=== PATIENT | female | born 1990 | race African-American/Black ===

== ENCOUNTER 2019-03-24 08:46 | Emergency (ER) | payer OTHER ==
[2019-03-24 08:59] VITALS: BP 131/78
--- NOTE | 2019-03-24 09:21 | ED Physician Documentation ---
History of Present Illness - Stated complaint Stated Complaint: SORE THROAT - Chief complaint Chief Complaint: Heent - History obtained from History obtained from: Patient - History of Present Illness Timing: Today Pain level max: 8 Pain level now: 7 Improved by: rest Worsened by: swallowing - Additonal information Additional information: sore throat for 3 days. no fever. has not taken anything for it. Review of Systems Constitutional: denies: Fever, Chills, Myalgias GI: denies: Vomiting, Diarrhea Skin: denies: Rash Musculoskeletal: denies: Neck pain, Back pain Neurologic: denies: Headache PD PAST MEDICAL HISTORY - Past Medical History Past Medical History: No - Past Surgical History Past Surgical History: No - Allergies Allergies/Adverse Reactions: Allergies Allergy/AdvReac Type Severity Reaction Status Date / Time No Known Drug Allergies Allergy Verified 03/24/19 08:59 - Social History Does the pt smoke?: No Smoking Status: Never smoker Does the pt have substance abuse?: No - Immunizations Immunizations are current?: Yes PD ED PE NORMAL - Vitals Vital signs reviewed: Yes - General General: Alert and oriented X 3, No acute distress - HEENT HEENT: PERRL, Ears normal, Moist mucous membranes, Pharynx benign, Other (Normal oropharyngeal exam. No erythema. No tonsillar exudates. Uvula midline. No trismus.) - Neck Neck: Supple, no meningeal sign, No adenopathy - Cardiac Cardiac: RRR, Strong equal pulses - Respiratory Respiratory: No respiratory distress, Clear bilaterally - Abdomen Abdomen: Soft, Non tender, Non distended - Derm Derm: Warm and dry - Neuro Neuro: Alert and oriented X 3 Results - Vitals Vitals: Vital Signs - 24 hr 03/24/19 08:53 Temperature 36 C L Heart Rate 81 Respiratory 16 Rate Blood Pressure 131/78 H O2 Saturation 98 Oxygen O2 Source Room air - Labs Labs: Laboratory Tests 03/24/19 09:04 Group A Strep Rapid Negative PD MEDICAL DECISION MAKING - ED course Complexity details: reviewed results, re-evaluated patient, considered differential, d/w patient ED course: 29-year-old female, well-appearing, nontoxic. Afebrile. Appears to have a viral pharyngitis. Rapid strep is negative. Will continue supportive care and follow-up with her doctor as needed. No evidence of peritonsillar abscess or retropharyngeal abscess. Patient counseled regarding signs and symptoms for which I believe and urgent re-evaluation would be necessary. Patient with good understanding of and agreement to plan and is comfortable going home at this time This document was made in part using voice recognition software. While efforts are made to proofread this document, sound alike and grammatical errors may occur. Departure - Departure Disposition: 01 Home, Self Care Clinical Impression: Viral pharyngitis Condition: Good Instructions: ED Pharyngitis Viral Follow-Up: REEMA JEAN DO [Primary Care Provider] - Within 1 week Comments: You can use Motrin or Tylenol as needed for pain/fever. Return if you worsen. Follow-up with your doctor for further care. Your rapid strep test is negative today. A back-up throat culture was sent. If this is positive, you will receive a phone call. Discharge Date/Time: 03/24/19 10:13
== END 2019-03-24 10:13 | disposition home or self-care (01) ==
LOC: ED 08:46
DX: J02.8 Acute pharyngitis due to other specified organisms (principal)
CPT/HCPCS: 87070; 87430; 99282; 99283

== ENCOUNTER 2020-02-22 17:24 | Emergency (ER) | payer OTHER ==
--- NOTE | 2020-02-22 17:57 | ED Physician Documentation ---
History of Present Illness - Stated complaint Stated Complaint: FEMALE - Additonal information Additional information: 30-year-old female presents to the emergency department with a chief complaint of vaginal bleeding with clots. She reports that she started her menstrual cyc le 2 days ago. She typically uses the diva cup to capture her flow. Today she noticed that there were clots within the diva cup and she denies ever having clots before. She denies any fever, no dysuria, denies the possibility of . She is simply concerned because clots are new to her.No pelvic pain. Review of Systems Constitutional: denies: Fever Cardiac: denies: Chest pain / pressure, Palpitations Respiratory: denies: Dyspnea, Cough : reports: Vaginal bleeding, Irregular menses. denies: Dysuria, Frequency Skin: denies: Rash Musculoskeletal: denies: Neck pain, Back pain Neurologic: denies: Generalized weakness, Focal weakness PD PAST MEDICAL HISTORY - Past Surgical History Past Surgical History: No - Present Medications Home Medications: Ambulatory Orders Medication Instructions Recorded Confirmed No Known Home Medications 02/22/20 02/22/20 - Allergies Allergies/Adverse Reactions: Allergies Allergy/AdvReac Type Severity Reaction Status Date / Time No Known Drug Allergies Allergy Verified 02/22/20 17:55 - Social History Does the pt smoke?: No Smoking Status: Never smoker Does the pt have substance abuse?: No - Immunizations Immunizations are current?: Yes PD ED PE NORMAL - General General: Alert and oriented X 3, No acute distress, Well developed/nourished - Cardiac Cardiac: RRR - Respiratory Respiratory: No respiratory distress - Abdomen Abdomen: Normal bowel sounds, Soft, Non tender - Female Female : 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 Speculum exam reveals a small amount of blood within the vault. Cervical loss is closed. No adnexal or CMT.Bleeding is consistent with a young female on her menstrual cycle.) Results - Vitals Vitals: Vital Signs - 24 hr 02/22/20 17:28 Temperature 36 C L Heart Rate 77 Respiratory 16 Rate Blood Pressure 137/89 H O2 Saturation 97 Oxygen O2 Source Room air - Labs Labs: Laboratory Tests 02/22/20 18:10 Urine Color YELLOW Urine Clarity CLEAR Urine pH 5.5 Ur Specific [place] >=1.030 H Urine Protein NEGATIVE Urine Glucose (UA) NEGATIVE Urine Ketones NEGATIVE Urine Occult Blood LARGE H Urine Nitrite NEGATIVE Urine Bilirubin NEGATIVE Urine Urobilinogen 0.2 (NORMAL) Ur Leukocyte Esterase NEGATIVE Urine RBC 0-5 Urine WBC 0-3 Ur Squamous Epith Cells MANY Squamous H Amorphous Sediment Moderate Urine Bacteria None Seen Ur Microscopic Review INDICATED Urine Culture Comments NOT INDICATED Urine HCG, Qual NEGATIVE PD MEDICAL DECISION MAKING - ED course Complexity details: reviewed results, d/w patient ED course: 30-year-old non female here for evaluation as she noted clots within her diva cup. She reports ports that she has never had clots in her cup before though she is used the diva cup for many years. She is not today a limited pelvic exam reveals no concerns for infection. Her cervical office is closed and there is a small amount of blood in the vaginal vault that is consistent with a menstruating female. I discussed that some clots may be normal especially when the blood is captured within a cup.Bleeding Cussed that she is not and to continue to monitor her menstrual cycles. Advised to return for heavy feeling faint or shortness of breath. Departure - Departure Disposition: 01 Home, Self Care Clinical Impression: Vaginal bleeding Condition: Stable Comments: Shell you are not today. Some women will pass clots with their menstrual cycle. The menstrual cycle is the shedding of the endometrium and sometimes the membrane that is shed can appear to have clots. Your pelvic exam was otherwise unremarkable. Continue to monitor your menstrual cycles. Return to the emergency department for suddenly severe pelvic pain, severe vaginal bleeding, or if you feel lightheaded or dizzy.
[2020-02-22 18:33] LABS: BILIRUBIN,URINE NEGATIVE (NEGATIVE); CLARITY,URINE CLEAR (CLEAR); GLUCOSE, URINE (UA) NEGATIVE (NEGATIVE); KETONES,URINE (UA) NEGATIVE (NEGATIVE); LEUKOCYTE ESTERASE, URINE NEGATIVE (NEGATIVE); NITRITE,URINE NEGATIVE (NEGATIVE); OCCULT BLOOD,URINE LARGE (NEGATIVE); PH,URINE 5.5 PH (5.0-7.5); PROTEIN,URINE NEGATIVE (NEGATIVE); UROBILINOGEN,URINE 0.2 (NORMAL) E.U./dL (NORMAL)
[2020-02-22 18:34] LABS: HCG UR QUAL NEGATIVE
[2020-02-22 18:51] LABS: AMORPHOUS SEDIMENT,UR Moderate /LPF; BACTERIA,URINE None Seen /HPF (None Seen); RBC,URINE 0-5 /HPF (0-5); SQUAMOUS EPITHELIAL CELL,UR MANY Squamous (<= Few)
[2020-02-22 19:12] VITALS: BP 121/78
== END 2020-02-22 19:15 | disposition home or self-care (01) ==
LOC: ED 17:24
DX: N93.9 Abnormal uterine and vaginal bleeding, unspecified (principal)
CPT/HCPCS: 81001; 81003; 81025; 87086; 99283; 99284

== ENCOUNTER 2020-09-04 08:29 | Emergency (ER) | payer OTHER ==
--- NOTE | 2020-09-04 09:17 | ED Physician Documentation ---
PD HPI OPHTHO - Stated complaint Stated Complaint: LT EYE BLURRY - Chief complaint Chief Complaint: Heent - History obtained from History obtained from: Patient - History of Present Illness Timing - onset: Yesterday Timing - duration: Days (2) Timing - details: Gradual onset, Still present Location: Left Quality / character: Aching Associated symptoms: Redness, Discharge, Matting. No: Tearing, FB sensation Contributing factors: Wears contacts Similar symptoms before: Diagnosis (keratoconas) Recently seen: Not recently seen - Additional information Additional information: 30-year-old female with a history of keratoconus is developed some redness to her left eye and some change in her vision that is making it so that her vision in the left eye is about the same as the right. Normally her left eye is better than the right. She wears some hard contact lenses and she has taken these out today and is not able to give us her normal visual acuity. She is wondering about the possibility of an infection or pinkeye and she is more concerned that she has had the reduction in visual acuity. Review of Systems Constitutional: denies: Fever Eyes: reports: Decreased vision, Irritation. denies: Photophobia Ears: denies: Ear pain Nose: denies: Rhinorrhea / runny nose, Congestion Throat: denies: Sore throat Cardiac: denies: Chest pain / pressure, Palpitations Respiratory: reports: Cough. 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 : None HEENT: Other Psych: None Musculoskeletal: None Derm: None Other Past Medical History: Keratoconus - Past Surgical History Past Surgical History: No HEENT: Other - Present Medications Home Medications: Ambulatory Orders Medication Instructions Recorded Confirmed No Known Home Medications 02/22/20 09/04/20 - Allergies Allergies/Adverse Reactions: Allergies Allergy/AdvReac Type Severity Reaction Status Date / Time No Known Drug Allergies Allergy Verified 09/04/20 08:45 - Social History Does the pt smoke?: No Smoking Status: Never smoker Does the pt drink ETOH?: Yes Does the pt have substance abuse?: No - Immunizations Immunizations are current?: Yes PD ED PE NORMAL - Vitals Vital signs reviewed: Yes (hypertensive mild ) - General General: Alert and oriented X 3, No acute distress - HEENT HEENT: Atraumatic, PERRL, EOMI, Other (mild scleral injection. No obvious deformity round pupil with thumb pressures equal. No FB and no drainage. ) - Neck Neck: Supple, no meningeal sign, No bony TTP - Respiratory Respiratory: No respiratory distress - Derm Derm: Normal color, Warm and dry, No rash - Extremities Extremities: No deformity, No edema - Neuro Neuro: Alert and oriented X 3, compliance paralegal 2-12 intact, No motor deficit, No sensory deficit, Normal speech Eye Opening: Spontaneous Motor: Obeys Commands Verbal: Oriented GCS Score: 15 - Psych Psych: Normal mood, Normal affect Results - Vitals Vitals: Vital Signs - 24 hr 09/04/20 09/04/20 08:45 09:43 Temperature 36.9 C 36.2 C L Heart Rate 66 70 Respiratory 16 16 Rate Blood Pressure 135/76 H 123/70 O2 Saturation 98 96 Oxygen O2 Source Room air PD MEDICAL DECISION MAKING - ED course Complexity details: considered differential, d/w patient ED course: 30-year-old female with history of keratoconus has a reduction in her visual acuity and this appears saltatory and she is referred to Dr. Richardson for further evaluation. I was able to talk to Dr. Richardson's PA and he initiated a telephone call with the patient to assist in getting her evaluated today. Departure - Departure Disposition: 01 Home, Self Care Clinical Impression: Redness of eye, Visual acuity reduced Condition: Stable Instructions: Keratoconus About Follow-Up: Justus Richardson MD [Provider Admit Priv/Credential] - Comments: Follow-up with Dr. Richardson's office today for examination. You will need to call your primary to get a referral to see him in his office. Discharge Date/Time: 09/04/20 09:44
[2020-09-04 09:44] VITALS: BP 123/70
== END 2020-09-04 09:44 | disposition home or self-care (01) ==
LOC: ED 08:29
DX: H57.89 Other specified disorders of eye and adnexa (principal); H53.8 Other visual disturbances; Z86.69 Personal history of other diseases of the nervous system and sense organs
CPT/HCPCS: 99281; 99284

== ENCOUNTER 2020-11-04 12:11 | Emergency (ER) | payer OTHER ==
[2020-11-04] MEDS ORDERED: IBUPROFEN 800 MG TABLET PO STA (13:03)
--- NOTE | 2020-11-04 13:04 | ED Physician Documentation ---
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 No other injuries. 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 : None HEENT: Other Psych: None Musculoskeletal: None Derm: None - Past Surgical History Past Surgical History: No HEENT: Other - Present Medications Home Medications: Ambulatory Orders Medication Instructions Recorded Confirmed HYDROcod/ACETAM 5/325 [[place] 5/325] 1 - 2 tab PO Q6H PRN #15 tablet 11/04/20 - Allergies Allergies/Adverse Reactions: Allergies Allergy/AdvReac Type Severity Reaction Status Date / Time No Known Drug Allergies Allergy Verified 11/04/20 12:30 - Social History Does the pt smoke?: No Smoking Status: Never smoker Does the pt drink ETOH?: Yes Does the pt have substance abuse?: No - Immunizations Immunizations are current?: Yes PD ED PE NORMAL - Vitals Vital signs reviewed: Yes - General General: Alert and oriented X 3, No acute distress - Extremities Extremities: Other (Tender to both malleoli of the left ankle with lateral swelling and some talar dome tenderness. No foot tenderness.) - Neuro Neuro: Alert and oriented X 3, Normal speech Results - Vitals Vitals: Vital Signs - 24 hr 11/04/20 12:28 Temperature 36.2 C L Heart Rate 107 H Respiratory 20 Rate Blood Pressure 111/72 O2 Saturation 95 Oxygen O2 Source Room air - Rads (name of study) L ankle Radiology: EMP read contemporaneously (Distal fibular frx) Procedures - Splint (location) L Leg Splint applied by: Tech Type of splint: Fiberglass, Short leg, Posterior Other: Patient tolerated well, No complications, Neurovascular intact, Crutches provided Departure - Departure Disposition: 01 Home, Self Care Clinical Impression: Fracture of distal end of fibula Qualifiers: Encounter type: initial encounter Fracture type: closed Fracture morphology: other fracture Laterality: left Qualified Code(s): S82.832A - Other fracture of upper and lower end of left fibula, initial encounter for closed fracture Condition: Good Record reviewed to determine appropriate education?: Yes Instructions: ED Fx Lower Ext, ED Cast Care Fiberglass Prescriptions: HYDROcod/ACETAM 5/325 [[place] 5/325] 1 - 2 tab PO Q6H PRN #15 tablet PRN Reason: Pain Comments: [place], follow-up with by the end of the week. Keep the splint on and dry and do not remove it until they advise it is safe to do so. Do not drink or drive while taking narcotic pain medication. Note that many narcotic pain relievers also contain Tylenol/acetaminophen. Please ensure that your total dose of acetaminophen from all sources does not exceed 3 g (3000 mg) per day. You may get constipated while on this medication. Take a stool softener such as Colace twice a day while you are on it. Also add an [id number] laxative such as senna or MiraLAX on any day that you do not have a bowel movement. If you received a narcotic pain medication or sedative while in the emergency department, do not drive for the next 24 hours. Forms: Activity restrictions
[2020-11-04] MEDS ORDERED: HYDROcod/ACETAM 5/325 MG TABLET PO STA (13:52)
--- NOTE | 2020-11-04 14:07 | XRAY Report ---
PROCEDURE: Ankle 3 View LT INDICATIONS: ankle inj TECHNIQUE: 3 views of the ankle were acquired. COMPARISON: None FINDINGS: Bones: There is a mildly to moderately displaced intra-articular fracture of the distal fibula. No additional fractures can be seen. The talar dome demonstrates an unremarkable appearance. Soft tissues: Soft tissue swelling is seen laterally. IMPRESSION: Distal fibular fracture, with intra-articular involvement. Reviewed by: Tadeo Addison MD on 11/04/2020 1:06 PM PATRICIO Approved by: Tadeo Addison MD on 11/04/2020 1:06 PM PATRICIO Station ID: [id number]
[2020-11-04 14:23] VITALS: BP 130/85
== END 2020-11-04 14:44 | disposition home or self-care (01) ==
LOC: ED 12:11
DX: S82.832A Other fracture of upper and lower end of left fibula, initial encounter for closed fracture (principal); X50.1XXA Overexertion from prolonged static or awkward postures, initial encounter; Y93.01 Activity, walking, marching and hiking
CPT/HCPCS: 29515; 73610; 99283; A9270

== ENCOUNTER 2021-05-12 06:31 | Emergency (ER) | payer OTHER ==
[2021-05-12] MEDS ORDERED: SODIUM CHLORIDE 0.9% 1,000 ML IV STA (07:08)
[2021-05-12 07:32] LABS: BASOPHILS # (AUTO) 0.1 10^3/uL (0.0-0.1); BASOPHILS % (AUTO) 0.4 %; EOSINOPHILS # (AUTO) 0.1 10^3/uL (0.0-0.7); EOSINOPHILS % (AUTO) 0.4 %; HCT - HEMATOCRIT 42.1 % (37.0-47.0); HGB - HEMOGLOBIN 13.3 g/dL (12.0-16.0); LYMPHOCYTES % (AUTO) 5.5 %; MEAN CORPUSCULAR HEMOGLOBIN 26.1 pg (27.0-31.0); MEAN CORPUSCULAR HGB CONC 31.6 g/dL (32.0-36.0); MEAN CORPUSCULAR VOLUME 82.7 fL (81.0-99.0); MEAN PLATELET VOLUME 11.6 fL (7.9-10.8); MONOCYTES # (AUTO) 0.4 10^3/uL (0.0-1.0); MONOCYTES % (AUTO) 2.5 %; NEUTROPHILS # (AUTO) 15.8 10^3/uL (1.5-6.6); NEUTROPHILS % (AUTO) 90.9 %; PLT - PLATELET COUNT 289 10^3/uL (130-450); RED BLOOD COUNT 5.09 10^6/uL (4.20-5.40); RED CELL DISTRIBUTION WIDTH 13.8 % (12.0-15.0); WHITE BLOOD COUNT 17.4 x10^3/uL (4.8-10.8)
[2021-05-12] MEDS ORDERED: ACETAMINOPHEN 500 MG TABLET PO STA (07:38)
[2021-05-12] MEDS ORDERED: IBUPROFEN 400 MG TABLET PO STA (07:38)
[2021-05-12 07:46] LABS: ALBUMIN 4.8 g/dL (3.2-5.5); ALBUMIN/GLOBULIN RATIO 1.5 (1.0-2.2); BILIRUBIN,TOTAL 0.6 mg/dL (0.2-1.0); CALCIUM 9.3 mg/dL (8.5-10.3); CREATININE 0.7 mg/dL (0.4-1.0); POTASSIUM 3.7 mmol/L (3.5-5.0); TOTAL PROTEIN 7.9 g/dL (6.7-8.2)
--- NOTE | 2021-05-12 09:00 | ED Physician Documentation ---
PD HPI DYSPNEA - Stated complaint Stated Complaint: COUGH/SOA - Chief complaint Chief Complaint: Resp - History obtained from History obtained from: Patient - Additional information Additional information: Patient comes emergency department chief complaint of shortness of breath and cough that started overnight. The patient states that she was feeling completely fine yesterday but woke up around 3:00 this morning with persistent dry cough. Patient states that she has had some chills but does not have a thermometer at home so was unaware that she had a fever. She states she feels tired but she is not sure if this is because she woke up early. No nausea or vomiting. No abdominal pain. She states she feels a tightness in her chest but no chest pain. She has a strong family history of asthma, but she has never been diagnosed. No sick contacts. Patient had the full Moderna vaccination series for Covid in November. No other complaints at this time. Review of Systems Ten Systems: 10 systems reviewed and negative Constitutional: reports: Reviewed and negative Eyes: reports: Reviewed and negative Ears: reports: Reviewed and negative Nose: reports: Reviewed and negative Throat: reports: Reviewed and negative Cardiac: reports: Reviewed and negative Respiratory: reports: Dyspnea, Cough GI: reports: Reviewed and negative : reports: Reviewed and negative Skin: reports: Reviewed and negative Musculoskeletal: reports: Reviewed and negative Neurologic: reports: Reviewed and negative Psychiatric: reports: Reviewed and negative Endocrine: reports: Reviewed and negative Immunocompromised: reports: Reviewed and negative PD PAST MEDICAL HISTORY - Past Medical History Past Medical History: No Cardiovascular: None Respiratory: None Neuro: None Endocrine/Autoimmune: None GI: None 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 HEENT: Other Psych: None Musculoskeletal: None Derm: None - Past Surgical History Past Surgical History: No HEENT: Other - Present Medications Home Medications: Ambulatory Orders Medication Instructions Recorded Confirmed HYDROcod/ACETAM 5/325 [[place] 5/325] 1 - 2 tab PO Q6H PRN #15 tablet 11/04/20 Albuterol Sulfate [Proair Hfa 1 - 2 puffs INH Q4H PRN #1 gm 05/12/21 Inhaler] predniSONE [Deltasone] 60 mg PO DAILY 5 Days #15 tablet 05/12/21 - Allergies Allergies/Adverse Reactions: Allergies Allergy/AdvReac Type Severity Reaction Status Date / Time No Known Drug Allergies Allergy Verified 05/12/21 06:35 - Social History Does the pt smoke?: No Smoking Status: Never smoker Does the pt drink ETOH?: Yes Does the pt have substance abuse?: No - Immunizations Immunizations are current?: Yes PD ED PE NORMAL - Vitals Vital signs reviewed: Yes - General General: Alert and oriented X 3, No acute distress, Well developed/nourished - HEENT HEENT: Atraumatic, PERRL, EOMI, Moist mucous membranes - Neck Neck: Supple, no meningeal sign - Cardiac Cardiac: RRR, No murmur - Respiratory Respiratory: No respiratory distress, Clear bilaterally, Other (Persistent fits of dry coughing, but patient speaking full sentences and in no distress in betwe en.) - Abdomen Abdomen: Soft, Non tender, Non distended - Derm Derm: Normal color, Warm and dry, No rash - Extremities Extremities: No deformity, No edema - Neuro Neuro: Alert and oriented X 3, labor and 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 nurse 2-12 intact, Normal speech - Psych Psych: Normal mood, Normal affect Results - Vitals Vitals: Vital Signs - 24 hr 05/12/21 10:16 Heart Rate 104 H Respiratory 17 Rate Blood Pressure 116/74 O2 Saturation 99 Oxygen O2 Source Room air - Labs Labs: Laboratory Tests 05/12/21 05/12/21 05/12/21 07:12 07:12 07:12 WBC 17.4 H RBC 5.09 Hgb 13.3 Hct 42.1 MCV 82.7 MCH 26.1 L MCHC 31.6 L RDW 13.8 Plt Count 289 MPV 11.6 H Neut # (Auto) 15.8 H Lymph # (Auto) 1.0 L Treasure # (Auto) 0.4 Eos # (Auto) 0.1 Baso # (Auto) 0.1 Absolute Nucleated RBC 0.00 Nucleated RBC % 0.0 Sodium 140 Potassium 3.7 Chloride 104 Carbon Dioxide 24 Anion Gap 12.0 BUN 18 Creatinine 0.7 Estimated GFR (MDRD) 120 Glucose 122 H Calcium 9.3 Total Bilirubin 0.6 AST 25 ALT 24 Alkaline Phosphatase 72 Total Protein 7.9 Albumin 4.8 Globulin 3.1 Albumin/Globulin Ratio 1.5 Lipase 55 H Nasal Adenovirus (PCR) NOT DETECTED Nasal B. parapertussis DNA (PCR) NOT DETECTED Nasal Coronavir 229E PCR NOT DETECTED Nasal Coronavir HKU1 PCR NOT DETECTED Nasal Coronavir NL63 PCR NOT DETECTED Nasal Coronavir OC43 PCR NOT DETECTED Nasal Enterovir/Rhinovir PCR NOT DETECTED Nasal Influenza B PCR NOT DETECTED Nasal Influenza A PCR NOT DETECTED Nasal Parainfluen 1 PCR NOT DETECTED Nasal Parainfluen 2 PCR NOT DETECTED Nasal Parainfluen 3 PCR NOT DETECTED Nasal Parainfluen 4 PCR NOT DETECTED Nasal RSV (PCR) NOT DETECTED Nasal B.pertussis DNA PCR NOT DETECTED Nasal C.pneumoniae (PCR) NOT DETECTED Floyd Human Metapneumo PCR NOT DETECTED Nasal M.pneumoniae (PCR) NOT DETECTED Nasal SARS-CoV-2 (PCR) NOT DETECTED - Rads (name of study) chest XR Radiology: Final report received, EMP read indepedently, See rad report (neg) PD MEDICAL DECISION MAKING - ED course Complexity details: reviewed results, re-evaluated patient, considered di fferential, d/w patient ED course: Patient's work-up, including labs and x-ray and viral panel was negative in the emergency department. I discussed with patient that I am not sure what is causing her fever and cough, but suspect an unidentified viral syndrome. We have discussed symptomatic management at home, as well as the usual indications for return. Departure - Departure Disposition: 01 Home, Self Care Condition: Stable Instructions: ED Viral Syndrome Prescriptions: predniSONE [Deltasone] 60 mg PO DAILY 5 Days #15 tablet Albuterol Sulfate [Proair Hfa Inhaler] 1 - 2 puffs INH Q4H PRN #1 gm PRN Reason: Shortness Of Air/Wheezing Comments: Your chest x-ray is negative, as is your viral panel. Most likely, you have one of the many viruses that are going around, causing cough and fever. You may use the inhaler and steroids to help with the cough. May take Tylenol 650 mg every 4 hours and ibuprofen 600 mg every 6 hours, as needed for fever. Please take the next few days off of work until you are feeling better. If you begin to feel much worse with your breathing, you may return to the emergency department. Otherwise, this illness will be expected to pass on its own in the next week or so. Forms: Activity restrictions Discharge Date/Time: 05/12/21 10:16
[2021-05-12 09:14] LABS: B. PARAPERTUSSIS- RESP PCR PAN NOT DETECTED; B. PERTUSSIS- RESP PCR PANEL NOT DETECTED; C. PNEUMONIAE- RESP PCR PANEL NOT DETECTED; CORONAVIRUS 229E-RESP PCR NOT DETECTED; CORONAVIRUS HKU1-RESP PCR NOT DETECTED; CORONAVIRUS NL63-RESP PCR NOT DETECTED; CORONAVIRUS OC43-RESP PCR NOT DETECTED; HUMAN METAPNEUMOVIRUS NOT DETECTED; INFLUENZA A- RESP PCR PANEL NOT DETECTED; INFLUENZA B - RESP PCR PANEL NOT DETECTED; M. PNEUMONIAE- RESP PCR PANEL NOT DETECTED; PARAINFLUENZA VIRUS 1 NOT DETECTED; PARAINFLUENZA VIRUS 2 NOT DETECTED; PARAINFLUENZA VIRUS 3 NOT DETECTED; RHINOVIRUS/ENTEROVIRUS NOT DETECTED; RSV- RESP PCR PANEL NOT DETECTED; SARS-CoV-2 -RESP PCR PANEL NOT DETECTED
--- NOTE | 2021-05-12 09:14 | XRAY Report ---
PROCEDURE: Chest 1 View X-Ray INDICATIONS: chest pain TECHNIQUE: One view of the chest was acquired. COMPARISON: None FINDINGS: Surgical changes and devices: None. Lungs and pleura: No pleural effusions or pneumothorax. Lungs are clear. Mediastinum: Mediastinal contours appear normal. Heart size is normal. Bones and chest wall: No suspicious bony lesions. Overlying soft tissues appear unremarkable. IMPRESSION: No acute cardiopulmonary findings Reviewed by: Mahamed Ge MD on 05/12/2021 8:12 AM PATRICIO Approved by: Mahamed Ge MD on 05/12/2021 8:12 AM AKAMBER Station ID: [id number]
[2021-05-12 09:15] LABS: PARAINFLUENZA VIRUS 4 NOT DETECTED
[2021-05-12 10:17] VITALS: BP 116/74
== END 2021-05-12 10:16 | disposition home or self-care (01) ==
LOC: ED 06:31
DX: B34.9 Viral infection, unspecified (principal); Z20.822 Contact with and (suspected) exposure to COVID-19
CPT/HCPCS: 0202U; 36415; 71045; 80053; 83690; 85025; 99283; 99284; A9270

== ENCOUNTER 2021-08-16 16:49 | Observation (INO) | payer OTHER ==
[2021-08-16 17:31] LABS: BASOPHILS # (AUTO) 0.1 10^3/uL (0.0-0.1); BASOPHILS % (AUTO) 0.6 %; EOSINOPHILS # (AUTO) 0.2 10^3/uL (0.0-0.7); EOSINOPHILS % (AUTO) 1.8 %; HCT - HEMATOCRIT 37.2 % (37.0-47.0); HGB - HEMOGLOBIN 11.7 g/dL (12.0-16.0); LYMPHOCYTES # (AUTO) 1.8 10^3/uL (1.5-3.5); MEAN CORPUSCULAR HEMOGLOBIN 26.1 pg (27.0-31.0); MEAN CORPUSCULAR HGB CONC 31.5 g/dL (32.0-36.0); MEAN CORPUSCULAR VOLUME 82.9 fL (81.0-99.0); MEAN PLATELET VOLUME 11.8 fL (7.9-10.8); MONOCYTES # (AUTO) 0.7 10^3/uL (0.0-1.0); MONOCYTES % (AUTO) 7.2 %; NEUTROPHILS # (AUTO) 7.5 10^3/uL (1.5-6.6); NEUTROPHILS % (AUTO) 73.1 %; PLT - PLATELET COUNT 216 10^3/uL (130-450); RED BLOOD COUNT 4.49 10^6/uL (4.20-5.40); RED CELL DISTRIBUTION WIDTH 13.8 % (12.0-15.0); WHITE BLOOD COUNT 10.3 x10^3/uL (4.8-10.8)
[2021-08-16 17:43] LABS: ALBUMIN 4.1 g/dL (3.2-5.5); ALBUMIN/GLOBULIN RATIO 1.1 (1.0-2.2); BILIRUBIN,TOTAL 0.5 mg/dL (0.2-1.0); CALCIUM 8.9 mg/dL (8.5-10.3); CREATININE 0.6 mg/dL (0.4-1.0); POTASSIUM 3.7 mmol/L (3.5-5.0); TOTAL PROTEIN 7.7 g/dL (6.7-8.2)
[2021-08-16] MEDS ORDERED: IOPAMIDOL-300 50 ML VIAL ONE (17:54)
[2021-08-16] MEDS ORDERED: iohexoL-300 100 ML VIAL ONE (17:54)
[2021-08-16] MEDS ORDERED: iohexoL-300 100 ML VIAL IVP ONE (18:19)
[2021-08-16] MEDS ORDERED: PIPERACILLIN/TAZOBACTAM 3.375 GM in SODIUM CHLORIDE 0.9% MINIBAG 100 ML IV STA (18:37)
--- NOTE | 2021-08-16 18:40 | ED Physician Documentation ---
PD HPI ABD PAIN - Stated complaint Stated Complaint: ABD PX - Chief complaint Chief Complaint: Abd Pain - History obtained from History obtained from: Patient - History of Present Illness Timing - onset: How many days ago (2) Timing - duration: Days (2) Timing - details: Gradual onset Pain level max: 7 Pain level now: 6 Quality: Aching, Pain Radiation: No: Chest, , Lower back, Left flank, Left shoulder, Right flank, Right shoulder, Upper back Associated symptoms: Nausea. No: Fever, Vomiting, Hematemesis, Diarrhea, Constipation, Melena - Additional information Additional information: Is a 31-year-old female who presents to the emergency department with 2 days of right lower quadrant abdominal pain. Gradually worsening over that time. Worse with movement, nothing makes it better. Described as an aching pain. LMP was 3 days ago. The pain is nonradiating. She states when she presses on the left side of her abdomen it hurts on the right side. Has had decreased appetite, no vomiting or diarrhea. No fever. Has never had similar symptoms previously. 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 : None HEENT: Other Psych: None Musculoskeletal: None Derm: None - Past Surgical History Past Surgical History: No HEENT: Other - Present Medications Home Medications: Ambulatory Orders Medication Instructions Recorded Confirmed HYDROcod/ACETAM 5/325 [New Era 5/325] 1 - 2 tab PO Q6H PRN #15 tablet 11/04/20 Albuterol Sulfate [Proair Hfa 1 - 2 puffs INH Q4H PRN #1 gm 05/12/21 Inhaler] predniSONE [Deltasone] 60 mg PO DAILY 5 Days #15 tablet 05/12/21 - Allergies Allergies/Adverse Reactions: Allergies Allergy/AdvReac Type Severity Reaction Status Date / Time penicillin G Allergy Rash Verified 08/16/21 20:06 [From Bicillin C-R] penicillin G procaine Allergy Rash Verified 08/16/21 20:06 [From Bicillin C-R] - Social History Does the pt smoke?: No Smoking Status: Never smoker Does the pt drink ETOH?: Yes Does the pt have substance abuse?: No - Immunizations Immunizations are current?: Yes PD ED PE NORMAL - Vitals Vital signs reviewed: Yes - General General: Alert and oriented X 3, No acute distress, Well developed/nourished - HEENT HEENT: Moist mucous membranes - Neck Neck: Supple, no meningeal sign - Cardiac Cardiac: RRR, Strong equal pulses - Respiratory Respiratory: No respiratory distress, Clear bilaterally - Abdomen Abdomen: Soft, Non distended, Other (Tender palpation right lower quadrant McBurney's point. Positive rebound and guarding. Positive Rovsing's, positive obturator and psoas signs.) - Back Back: No CVA TTP - Derm Derm: Warm and dry - Extremities Extremities: No edema - Neuro Neuro: Alert and oriented X 3 - Psych Psych: Normal mood, Normal affect Results - Vitals Vitals: Vital Signs - 24 hr 08/16/21 08/16/21 17:03 19:26 Temperature 37.1 C Heart Rate 93 87 Respiratory 18 16 Rate Blood Pressure 127/89 H 146/99 H O2 Saturation 100 99 Oxygen O2 Source Room air - Labs Labs: Laboratory Tests 08/16/21 08/16/21 08/16/21 17:25 17:25 17:25 WBC 10.3 RBC 4.49 Hgb 11.7 L Hct 37.2 MCV 82.9 MCH 26.1 L MCHC 31.5 L RDW 13.8 Plt Count 216 MPV 11.8 H Neut # (Auto) 7.5 H Lymph # (Auto) 1.8 [place] # (Auto) 0.7 Eos # (Auto) 0.2 Baso # (Auto) 0.1 Absolute Nucleated RBC 0.00 Nucleated RBC % 0.0 Sodium 137 Potassium 3.7 Chloride 102 Carbon Dioxide 25 Anion Gap 10.0 BUN 9 Creatinine 0.6 Estimated GFR (MDRD) 118 Glucose 100 Calcium 8.9 Total Bilirubin 0.5 AST 88 H ALT 61 H Alkaline Phosphatase 75 Total Protein 7.7 Albumin 4.1 Globulin 3.6 Albumin/Globulin Ratio 1.1 Lipase 59 H HCG, Quant < 0.60 Urine Color Urine Clarity Urine pH Ur Specific [place] Urine Protein Urine Glucose (UA) Urine Ketones Urine Occult Blood Urine Nitrite Urine Bilirubin Urine Urobilinogen Ur Leukocyte Esterase Urine RBC Urine WBC Ur Squamous Epith Cells Urine Bacteria Ur Microscopic Review Urine Culture Comments Nasal Adenovirus (PCR) Nasal B. parapertussis DNA (PCR) Nasal Coronavir 229E PCR Nasal Coronavir HKU1 PCR Nasal Coronavir NL63 PCR Nasal Coronavir OC43 PCR Nasal Enterovir/Rhinovir PCR Nasal Influenza B PCR Nasal Influenza A PCR Nasal Parainfluen 1 PCR Nasal Parainfluen 2 PCR Nasal Parainfluen 3 PCR Nasal Parainfluen 4 PCR Nasal RSV (PCR) Nasal B.pertussis DNA PCR Nasal C.pneumoniae (PCR) Floyd Human Metapneumo PCR Nasal M.pneumoniae (PCR) Nasal SARS-CoV-2 (PCR) 08/16/21 08/16/21 18:55 18:55 WBC RBC Hgb Hct MCV MCH MCHC RDW Plt Count MPV Neut # (Auto) Lymph # (Auto) Ma[place] # (Auto) Eos # (Auto) Baso # (Auto) Absolute Nucleated RBC Nucleated RBC % Sodium Potassium Chloride Carbon Dioxide Anion Gap BUN Creatinine Estimated GFR (MDRD) Glucose Calcium Total Bilirubin AST ALT Alkaline Phosphatase Total Protein Albumin Globulin Albumin/Globulin Ratio Lipase HCG, Quant Urine Color YELLOW Urine Clarity CLEAR Urine pH 5.5 Ur Specific [place] <=1.005 Urine Protein NEGATIVE Urine Glucose (UA) NEGATIVE Urine Ketones NEGATIVE Urine Occult Blood MODERATE H Urine Nitrite NEGATIVE Urine Bilirubin NEGATIVE Urine Urobilinogen 0.2 (NORMAL) Ur Leukocyte Esterase NEGATIVE Urine RBC 11-25 H Urine WBC 4-5 Ur Squamous Epith Cells FEW Squamous Urine Bacteria Rare Ur Microscopic Review INDICATED Urine Culture Comments NOT INDICATED Nasal Adenovirus (PCR) NOT DETECTED Nasal B. parapertussis DNA (PCR) NOT DETECTED Nasal Coronavir 229E PCR NOT DETECTED Nasal Coronavir HKU1 PCR NOT DETECTED Nasal Coronavir NL63 PCR NOT DETECTED Nasal Coronavir OC43 PCR NOT DETECTED Nasal Enterovir/Rhinovir PCR NOT DETECTED Nasal Influenza B PCR NOT DETECTED Nasal Influenza A PCR NOT DETECTED Nasal Parainfluen 1 PCR NOT DETECTED Nasal Parainfluen 2 PCR NOT DETECTED Nasal Parainfluen 3 PCR NOT DETECTED Nasal Parainfluen 4 PCR NOT DETECTED Nasal RSV (PCR) NOT DETECTED Nasal B.pertussis DNA PCR NOT DETECTED Nasal C.pneumoniae (PCR) NOT DETECTED Floyd Human Metapneumo PCR NOT DETECTED Nasal M.pneumoniae (PCR) NOT DETECTED Nasal SARS-CoV-2 (PCR) NOT DETECTED - Rads (name of study) CT abdomen pelvis Radiology: Final report received, EMP read contemporaneously, See rad report (Acute appendicitis) PD MEDICAL DECISION MAKING - ED course Complexity details: reviewed results, re-evaluated patient, considered differential, d/w patient ED course: Patient is a 31-year-old female who [facility]. Found to have acute appendicitis on CT scan. Started on Zosyn. Discussed the case with general surgery who will come evaluate the patient. Dr. William will take the patient to the operating room for Appendectomy This document was made in part using voice recognition software. While efforts are made to proofread this document, sound alike and grammatical errors may occur. Departure - Departure Disposition: ED Transfer to [facility] Clinical Impression: Appendicitis Qualifiers: Appendicitis type: acute appendicitis Acute appendicitis type: with localized peritonitis Appendicitis gangrene presence: unspecified whether gangrene present Appendicitis perforation presence: without perforation Appendicitis abscess presence: without abscess Qualified Code(s): K35.30 - Acute appendicitis with localized peritonitis, without perforation or gangrene Condition: Stable Discharge Date/Time: 08/16/21 20:54
--- NOTE | 2021-08-16 19:02 | CT Report ---
PROCEDURE: Abdomen/Pelvis W INDICATIONS: RLQ abd pain CONTRAST: IV CONTRAST: Isovue 300 ml: 100 PO CONTRAST: *NO PO CONTRAST TECHNIQUE: After the administration of intravenous contrast, 5 mm thick sections acquired from the diaphragms to the symphysis. 5 mm thick coronal and sagittal reformats were acquired. For radiation dose reducti on, the following was used: automated exposure control, adjustment of mA and/or kV according to rafi ent size. COMPARISON: None. FINDINGS: Image quality: Excellent. ABDOMEN: Lung bases: Lung bases are clear. Heart size is normal. Solid organs: Minimal diffuse hepatic steatosis. Prominent left lobe of liver. Borderline splenomegal y. Gallbladder is unremarkable. Biliary system is non dilated. Pancreas enhances normally. No adre nal nodules. Kidneys demonstrate normal size and enhancement, without hydronephrosis. Peritoneum and bowel: The appendix is edematous, fluid-filled, and inflamed. There is inflammatory ch elinor and minimal inflammatory fluid adjacent to the appendix. Findings are consistent with acute appe ndicitis. Cannot exclude rupture. However, no free air or abscess cavity is noted. There is mild deep pelvic ascites. Nodes and vessels: No retroperitoneal or mesenteric adenopathy by size criteria. Aorta and inferior vena cava are normal in size. Miscellaneous: No ventral hernias. PELVIS: Genitourinary: Bladder wall thickness is normal. There is mild deep pelvic ascites. The right adnex a is cystic. Miscellaneous: No inguinal hernias or adenopathy. Bones: No suspicious bony lesions. No vertebral body compression fractures. IMPRESSION: 1. Acute appendicitis. Cannot exclude recent rupture. 2. Very mild hepatic steatosis. Prominent left lobe of liver. 3. Borderline splenomegaly. Reviewed by: Cem Joseph MD on 08/16/2021 7:00 PM PST Approved by: Cem Joseph MD on 08/16/2021 7:00 PM PST Station ID: [id number]
[2021-08-16 19:06] LABS: BILIRUBIN,URINE NEGATIVE (NEGATIVE); GLUCOSE, URINE (UA) NEGATIVE (NEGATIVE); KETONES,URINE (UA) NEGATIVE (NEGATIVE); LEUKOCYTE ESTERASE, URINE NEGATIVE (NEGATIVE); NITRITE,URINE NEGATIVE (NEGATIVE); OCCULT BLOOD,URINE MODERATE (NEGATIVE); PH,URINE 5.5 PH (5.0-7.5); PROTEIN,URINE NEGATIVE (NEGATIVE); UROBILINOGEN,URINE 0.2 (NORMAL) E.U./dL (NORMAL)
[2021-08-16 19:28] LABS: CLARITY,URINE CLEAR (CLEAR)
[2021-08-16 19:29] LABS: BACTERIA,URINE Rare /HPF (None Seen); SQUAMOUS EPITHELIAL CELL,UR FEW Squamous (<= Few)
[2021-08-16 19:57] LABS: CORONAVIRUS 229E-RESP PCR NOT DETECTED; CORONAVIRUS HKU1-RESP PCR NOT DETECTED; CORONAVIRUS NL63-RESP PCR NOT DETECTED; CORONAVIRUS OC43-RESP PCR NOT DETECTED; HUMAN METAPNEUMOVIRUS NOT DETECTED; INFLUENZA A- RESP PCR PANEL NOT DETECTED; INFLUENZA B - RESP PCR PANEL NOT DETECTED; PARAINFLUENZA VIRUS 1 NOT DETECTED; PARAINFLUENZA VIRUS 2 NOT DETECTED; PARAINFLUENZA VIRUS 3 NOT DETECTED; PARAINFLUENZA VIRUS 4 NOT DETECTED; RHINOVIRUS/ENTEROVIRUS NOT DETECTED; SARS-CoV-2 -RESP PCR PANEL NOT DETECTED
[2021-08-16 19:58] LABS: B. PARAPERTUSSIS- RESP PCR PAN NOT DETECTED; B. PERTUSSIS- RESP PCR PANEL NOT DETECTED; C. PNEUMONIAE- RESP PCR PANEL NOT DETECTED; M. PNEUMONIAE- RESP PCR PANEL NOT DETECTED; RSV- RESP PCR PANEL NOT DETECTED
--- NOTE | 2021-08-16 20:03 | HISTORY & PHYSICAL EXAMINATION ---
Chief Complaint - Chief Complaint Chief Complaint: Right sided abdominal pain History of Present Illness - History of Present Illness HPI Comment/Other: 31 year old woman with 1 day of right sided abdominal pain and associated anorexia. Began as diffuse and crampy, thought to be due to her period starting, but then progressed and localized to the right lower abdomen. Last ate this morning. Nausea, anorexia, no emesis or other GI complaints. No other medical history. 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 : reports: None HEENT: reports: Chronic vision loss, Other Psych: reports: None Musculoskeletal: reports: None Derm: reports: None MRSA Hx?: No - Past Surgical History HEENT: reports: Other - Family & Social History Living arrangement: At home Social History Notes: Is in [place] but soon leaving due to vision impairment - Substance History Use: Uses substance without health or social issues: NONE, Other (Occasional ETOH) Meds/Allgy - Home Medications Home Medications: Ambulatory Orders Medication Instructions Recorded Confirmed HYDROcod/ACETAM 5/325 [Marydel 5/325] 1 - 2 tab PO Q6H PRN #15 tablet 11/04/20 Albuterol Sulfate [Proair Hfa 1 - 2 puffs INH Q4H PRN #1 gm 05/12/21 Inhaler] predniSONE [Deltasone] 60 mg PO DAILY 5 Days #15 tablet 05/12/21 - Allergies Allergies/Adverse Reactions: Allergies Allergy/AdvReac Type Severity Reaction Status Date / Time penicillin G Allergy Rash Verified 08/16/21 20:06 [From Bicillin C-R] penicillin G procaine Allergy Rash Verified 08/16/21 20:06 [From Bicillin C-R] Review of Systems - Constitutional Constitutional: reports: Poor appetite - Eyes Eyes: reports: Vision loss - Ears, Nose & Throat Ears, Nose & Throat: denies: Hearing loss - Cardiovascular Cariovascular: denies: Irregular heart rate, Chest pain - Respiratory Respiratory: denies: Cough, SOB at rest, SOB with exertion - Gastrointestinal Gastrointestinal: reports: Abdominal pain, Poor appetite - Genitourinary Genitourinary: denies: Dysuria - Musculoskeletal Musculoskeletal: denies: Muscle pain - Integumentary Integumentary: denies: Rash - Neurological Neurological: denies: General weakness - All Other Systems All Other Systems: reports: Reviewed and negative Exam - Vital Signs Reviewed Vital Signs: Yes Vital Signs: Vital Signs x48h Temp Pulse Resp BP Pulse Ox 08/16/21 19:26 87 16 146/99 H 99 08/16/21 17:03 37.1 C 93 18 127/89 H 100 - Physical Exam General Appearance: positive: No acute distress Eyes Bilateral: positive: Normal inspection Respiratory: positive: No respiratory distress Cardiovascular: positive: Regular rate & rhythm Abdomen: positive: No distention, Tenderness, Other (Tenderness in right lower quadrant) Skin: positive: Color nml, Warm, Dry Extremities: positive: Full ROM Neurologic/Psychiatric: positive: Oriented x3 Conclusion/Plan - Problem List (1) Appendicitis Conclusion/Plan: Plan for laparoscopic appendectomy Patient received zosyn Consented for surgery after discussion of risks and benefits including bleeding, infection, pain, scarring, and damage to surrounding structures. To OR Qualifiers: Appendicitis type: acute appendicitis Acute appendicitis type: with localized peritonitis Appendicitis gangrene presence: unspecified whether gangrene present Appendicitis perforation presence: without perforation Appendicitis abscess presence: without abscess Qualified Code(s): K35.30 - Acute appendicitis with localized peritonitis, without perforation or gangrene - Lab Results Fish Bones: 08/16/21 17:25 08/16/21 17:25 - Diagnostic Imaging Results Diagnostic Imaging Results: positive: Final report reviewed Diagnostic Imaging Results Comments: Acute appendicitis with some pelvic free fluid
[2021-08-16] MEDS ORDERED: DEXAMETHASONE 4 MG/ML VIAL ONE (20:44)
[2021-08-16] MEDS ORDERED: LIDOCAINE-MPF 2% 5 ML VIAL ONE (20:44)
[2021-08-16] MEDS ORDERED: PROPOFOL 200 MG/20 ML VIAL IVP ONE (20:44)
[2021-08-16] MEDS ORDERED: ONDANSETRON 4 MG/2 ML VIAL ONE ×2 (20:44→23:53)
[2021-08-16] MEDS ORDERED: ROCURONIUM 50 MG/5 ML VIAL ONE (20:44)
--- NOTE | 2021-08-16 20:46 | ANESTHESIA ---
Pre-Anesthesia VS, & Labs - Diagnosis appendicitis - Procedure laparoscopic appendectomy Vital Signs: Temp Pulse Resp BP Pulse Ox 37.1 C 87 16 146/99 H 99 08/16/21 17:03 08/16/21 19:26 08/16/21 19:26 08/16/21 19:26 08/16/21 19:26 Height: 5 ft 4.5 in Weight (kg): 88.5 kg Body Mass Index: 32.9 BMI Classification: Obese - NPO >8 hours - Is Patient ?: No - Lab Results Current Lab Results: Laboratory Tests 08/16/21 17:25: HCG, Quant < 0.60 08/16/21 17:25: Sodium 137, Potassium 3.7, Chloride 102, Carbon Dioxide 25, Anion Gap 10.0, BUN 9, Creatinine 0.6, Estimated GFR (MDRD) 118, Glucose 100, Calcium 8.9, Total Bilirubin 0.5, AST 88 H, ALT 61 H, Alkaline Phosphatase 75, Total Protein 7.7, Albumin 4.1, Globulin 3.6, Albumin/Globulin Ratio 1.1, Lipase 59 H 08/16/21 17:25: WBC 10.3, RBC 4.49, Hgb 11.7 L, Hct 37.2, MCV 82.9, MCH 26.1 L, MCHC 31.5 L, RDW 13.8, Plt Count 216, MPV 11.8 H, Neut # (Auto) 7.5 H, Lymph # (Auto) 1.8, [place] # (Auto) 0.7, Eos # (Auto) 0.2, Baso # (Auto) 0.1, Absolute Nucleated RBC 0.00, Nucleated RBC % 0.0 Fish Bones: 08/16/21 17:25 08/16/21 17:25 Home Medications and Allergies Active Medications Lactated Ringer's (Lr) 1,000 mls @ 0 mls/hr IV .Q0M [facility], 1928–1983 Allergies/Adverse Reactions: Allergies Allergy/AdvReac Type Severity Reaction Status Date / Time penicillin G Allergy Rash Verified 08/16/21 20:06 [From Bicillin C-R] penicillin G procaine Allergy Rash Verified 08/16/21 20:06 [From Bicillin C-R] Anes History & Medical History - Anesthetic History Anesthesia Complications: reports: No previous complications - Medical History Cardiovascular: reports: None Pulmonary: reports: None Gastrointestinal: reports: None Urinary: reports: None Neuro: reports: None Musculoskeletal: reports: None Endocrine/Autoimmune: reports: None Blood Disorders: reports: None Skin: reports: None Smoking Status: Never smoker History of Cancer?: No - Surgical History Eyes Ears Nose Throat (EENT): reports: Other Exam General: Alert, Oriented x3 Dental: WNL Neck Mobility: Normal Mallampati classification: I Respiratory: Lungs clear Cardiovascular: Regular rate Plan Anesthesia Type: General Consent for Procedure(s) Verified and Reviewed: Yes Code Status: Attempt Resuscitation ASA classification: 2-Mild systemic disease Is this case an emergency?: Yes
[2021-08-16] MEDS ORDERED: fentaNYL 100 MCG/2 ML VIAL ONE ×2 (20:47→21:40)
[2021-08-16] MEDS ORDERED: MIDAZOLAM 2 MG/2 ML VIAL ONE (20:47)
[2021-08-16] MEDS ORDERED: LACTATED RINGERS 1,000 ML IV SCH ×2 (21:00→22:00)
[2021-08-16] MEDS ORDERED: BUPIVACAINE 0.5% PF 10 ML VIAL ONE (21:10)
[2021-08-16] MEDS ORDERED: ONDANSETRON 4 MG/2 ML VIAL IVP PRN (21:14)
[2021-08-16] MEDS ORDERED: NALOXONE 0.4 MG/ML VIAL IVP PRN (21:14)
[2021-08-16] MEDS ORDERED: ePHEDrine 50 MG/ML VIAL IVP PRN (21:14)
[2021-08-16] MEDS ORDERED: ATROPINE ABBOJECT 1 MG/10 ML SYRINGE IVP PRN (21:14)
[2021-08-16] MEDS ORDERED: fentaNYL 100 MCG/2 ML VIAL IVP PRN (21:14)
[2021-08-16] MEDS ORDERED: MORPHINE 2 MG/ML CARPUJECT IVP PRN (21:14)
[2021-08-16] MEDS ORDERED: METOCLOPRAMIDE 10 MG/2 ML VIAL IVP PRN (21:14)
[2021-08-16] MEDS ORDERED: SEVOFLURANE 250 ML LIQUID INH ONE (21:32)
[2021-08-16] MEDS ORDERED: BUPIVACAINE 0.5% PF 10 ML VIAL SUBQ ONE ×2 (21:33)
[2021-08-16] MEDS ORDERED: ACETAMINOPHEN 1,000 MG/100 ML 100 ML IV ONE (22:30)
[2021-08-16] MEDS ORDERED: KETOROLAC 30 MG/ML VIAL ONE (23:17)
[2021-08-16] MEDS ORDERED: SUGAMMADEX 200 MG/2 ML VIAL IVP ONE (23:17)
[2021-08-16] MEDS ORDERED: IBUPROFEN 600 MG TABLET PO PRN (23:28)
[2021-08-16] MEDS ORDERED: SODIUM CHLORIDE FLUSH 0.9% 10 ML SYRINGE IVP PRN (23:28)
[2021-08-16] MEDS ORDERED: LACTATED RINGERS 1,000 ML IV ONE (23:33)
[2021-08-16] MEDS ORDERED: ACETAMINOPHEN 325 MG TABLET PO SCH (23:45)
[2021-08-16] MEDS: HYDROmorphone 0.5 MG/0.5 ML SYRINGE IVP PRN ×2 (23:46→23:55)
[2021-08-16] MEDS ORDERED: HYDROmorphone 1 MG/ML CARPUJECT ONE (23:52)
--- NOTE | 2021-08-16 23:57 | ANESTHESIA POST OP EVALUATION ---
Anesthesia Post Eval - Post Anesthesia Eval Vitals: Last Vital Signs Temp 36.9 C 08/16/21 23:55 Pulse 88 08/16/21 23:55 Resp 15 08/16/21 23:55 BP 139/94 H 08/16/21 23:55 Pulse Ox 99 08/16/21 23:55 CV Function Including HR & BP: Stable Pain Control: Satisfactory Nausea & Vomiting: Negative Mental Status: Baseline Respiratory Status: Airway Patent Hydration Status: Satisfactory Anesthesia Complications: None
[2021-08-17] MEDS: HYDROmorphone 0.5 MG/0.5 ML SYRINGE IVP PRN (00:05)
[2021-08-17] MEDS ORDERED: HYDROmorphone 0.5 MG/0.5 ML SYRINGE ONE (00:14)
[2021-08-17] MEDS ORDERED: ACETAMINOPHEN 325 MG TABLET PO SCH (01:00)
[2021-08-17] MEDS ORDERED: ACETAMINOPHEN 500 MG TABLET PO SCH ×2 (01:00→08:00)
[2021-08-17] MEDS: traMADol 50 MG TABLET PO PRN ×2 (01:11→06:00)
[2021-08-17] MEDS: SODIUM CHLORIDE FLUSH 0.9% 10 ML SYRINGE IVP SCH ×2 (03:05→12:02)
[2021-08-17] MEDS ORDERED: HEPARIN 5,000 UNIT/ML VIAL SUBQ SCH (06:00)
[2021-08-17 07:11] VITALS: BP 108/59
--- NOTE | 2021-08-17 07:47 | OPERATIVE REPORT ---
Operative Report - General Procedure Date: 08/16/21 Planned Procedure: Laparoscopic appendectomy Pre-Op Diagnosis: Acute appendicitis Procedure Performed: Laparoscopic appendectomy Post Op Diagnosis: Acute appendicitis - Procedure Note Primary Surgeon: Alannah William Secondary Surgeon: Tomeka Conteh Anesthesia Provider: Meena Mckeon Anesthesia Technique: General ET tube IV Fluids (mL): 1,000 Estimated Blood Loss (mL): 25 Urine Output (mL): 150 Indications: 31year old woman with 2 days of abdominal pain localizing the RLQ, found to have leukocytosis and CTAP demonstrating acute appendicitis. Findings: Inflamed appendix Complications: None apparent - Other Other Information/Narrative: After receiving preoperative antibiotics, the patient was taken to the operating room where SCDs were placed. After starting general anesthesia, a blanco catheter was placed. THe abdomen was prepped and draped in the usual fashion. Local anesthesia (0.5% bupivacaine) was administered at the infraumbilical skin. A transverse incision was made and carried down to the fascia, and the peritoneal cavity was entered with Kathy technique. A 12mm balloon trocar was placed and pneumoperitoneum achieved. A 5-30 laparoscope was introduced, and after some difficulty getting the laparoscopic light to turn on requiring switching to new equipment, the peritoneal contents were inspected and an inflamed appendix was noted in the right lower quadrant. Two more 5mm ports were placed under direct vision in the suprapubic and left lower quadrant and the patient was placed with trendelenburg and right side up. The appendix was grasped and dissected down to the base, requiring some mobilization of the cecum. After creating a window at the base of the appendix, the appendix was taken using a 45mm Endo-LUANN stapler intestinal load, and the mesoappendix taken with a vascular load. Some simple fluid in the abdomen was suctioned, and the staple lines inspected demonstrating no bleeding or breakdown. The appendix specimen was removed with an endocatch bag, pneumoperitoneum evacuated, and trocars removed. The infraumbilical fascia was closed with 0-vicryl suture and skin closed with 4-0 monocryl and surgical glue. All instrument counts were reported correct. The patient was awakened and taken to the recovery room in good condition.
--- NOTE | 2021-08-17 07:59 | PROVIDER PROGRESS NOTE ---
Subjective - Prog Note Date Prog Note Date: 08/17/21 - Subjective Pt reports feeling: Improved (Pain controlled, tolerating fluids, voiding) Objective - Vital Signs/Intake & Output Reviewed Vital Signs: Yes Vital Signs: Vital Signs x48h Temp Pulse Pulse Resp BP BP Pulse Ox 08/17/21 07:10 36.6 C 72 18 108/59 L 95 08/17/21 06:00 36.6 C 84 16 105/63 97 08/17/21 04:45 36.7 C 72 16 112/66 97 08/17/21 04:05 36.5 C 77 16 107/60 96 08/17/21 03:00 36.6 C 84 84 16 113/64 113/64 96 08/17/21 01:13 36.6 C 78 16 123/80 98 08/17/21 00:30 36.4 C L 78 18 122/80 100 08/17/21 00:21 36.5 C 78 15 132/90 H 99 08/17/21 00:15 77 17 133/87 H 92 08/17/21 00:10 81 19 127/89 H 94 08/17/21 00:05 88 17 127/90 H 97 08/17/21 00:00 82 24 139/91 H 94 Intake & Output: Intake & Output 08/14/21 08/15/21 08/16/21 08/17/21 23:59 23:59 23:59 23:59 Intake Total 100 200 Balance 100 200 - Objective General Appearance: positive: No acute distress Respiratory: positive: No respiratory distress Cardiovascular: positive: Regular rate & rhythm Abdomen: positive: Other (Soft, non distended, appropriately tender at surgical sites, incisions c/d/i) Neurologic/Psychiatric: positive: Oriented x3 - Lab Results Fish Bones: 08/16/21 17:25 08/16/21 17:25 Other Labs: Lab Results x24hrs 08/16/21 08/16/21 08/16/21 Range/Units 18:55 18:55 17:25 WBC (4.8-10.8) x10^3/uL RBC (4.20-5.40) 10^6/uL Hgb (12.0-16.0) g/dL Hct (37.0-47.0) % MCV (81.0-99.0) fL MCH (27.0-31.0) pg MCHC (32.0-36.0) g/dL RDW (12.0-15.0) % Plt Count (130-450) 10^3/uL MPV (7.9-10.8) fL Neut # (Auto) (1.5-6.6) 10^3/uL Lymph # (Auto) (1.5-3.5) 10^3/uL Spencer # (Auto) (0.0-1.0) 10^3/uL Eos # (Auto) (0.0-0.7) 10^3/uL Baso # (Auto) (0.0-0.1) 10^3/uL Absolute Nucleated RBC x10^3/uL Nucleated RBC % /100WBC Sodium (135-145) mmol/L Potassium (3.5-5.0) mmol/L Chloride (101-111) mmol/L Carbon Dioxide (21-32) mmol/L Anion Gap (6-13) BUN (6-20) mg/dL Creatinine (0.4-1.0) mg/dL Estimated GFR (MDRD) (>89) Glucose (70-100) mg/dL Calcium (8.5-10.3) mg/dL Total Bilirubin (0.2-1.0) mg/dL AST (10-42) IU/L ALT (10-60) IU/L Alkaline Phosphatase (42-121) IU/L Total Protein (6.7-8.2) g/dL Albumin (3.2-5.5) g/dL Globulin (2.1-4.2) g/dL Albumin/Globulin Ratio (1.0-2.2) Lipase (22-51) U/L HCG, Quant < 0.60 mIU/mL Urine Color YELLOW Urine Clarity CLEAR (CLEAR) Urine pH 5.5 (5.0-7.5) PH Ur Specific [place] <=1.005 (1.002-1.030) Urine Protein NEGATIVE (NEGATIVE) mg/dL Urine Glucose (UA) NEGATIVE (NEGATIVE) mg/dL Urine Ketones NEGATIVE (NEGATIVE) mg/dL Urine Occult Blood MODERATE H (NEGATIVE) Urine Nitrite NEGATIVE (NEGATIVE) Urine Bilirubin NEGATIVE (NEGATIVE) Urine Urobilinogen 0.2 (NORMAL) (NORMAL) E.U./dL Ur Leukocyte Esterase NEGATIVE (NEGATIVE) Urine RBC 11-25 H (0-5) /HPF Urine WBC 4-5 (0-5) /HPF Ur Squamous Epith Cells FEW Squamous (<= Few) Urine Bacteria Rare (None Seen) /HPF Ur Microscopic Review INDICATED Urine Culture Comments NOT INDICATED Nasal Adenovirus (PCR) NOT DETECTED Nasal B. parapertussis DNA (PCR) NOT DETECTED Nasal Coronavir 229E PCR NOT DETECTED Nasal Coronavir HKU1 PCR NOT DETECTED Nasal Coronavir NL63 PCR NOT DETECTED Nasal Coronavir OC43 PCR NOT DETECTED Nasal Enterovir/Rhinovir PCR NOT DETECTED Nasal Influenza B PCR NOT DETECTED Nasal Influenza A PCR NOT DETECTED Nasal Parainfluen 1 PCR NOT DETECTED Nasal Parainfluen 2 PCR NOT DETECTED Nasal Parainfluen 3 PCR NOT DETECTED Nasal Parainfluen 4 PCR NOT DETECTED Nasal RSV (PCR) NOT DETECTED Nasal B.pertussis DNA PCR NOT DETECTED Nasal C.pneumoniae (PCR) NOT DETECTED Floyd Human Metapneumo PCR NOT DETECTED Nasal M.pneumoniae (PCR) NOT DETECTED Nasal SARS-CoV-2 (PCR) NOT DETECTED 08/16/21 08/16/21 Range/Units 17:25 17:25 WBC 10.3 (4.8-10.8) x10^3/uL RBC 4.49 (4.20-5.40) 10^6/uL Hgb 11.7 L (12.0-16.0) g/dL Hct 37.2 (37.0-47.0) % MCV 82.9 (81.0-99.0) fL MCH 26.1 L (27.0-31.0) pg MCHC 31.5 L (32.0-36.0) g/dL RDW 13.8 (12.0-15.0) % Plt Count 216 (130-450) 10^3/uL MPV 11.8 H (7.9-10.8) fL Neut # (Auto) 7.5 H (1.5-6.6) 10^3/uL Lymph # (Auto) 1.8 (1.5-3.5) 10^3/uL Spencer # (Auto) 0.7 (0.0-1.0) 10^3/uL Eos # (Auto) 0.2 (0.0-0.7) 10^3/uL Baso # (Auto) 0.1 (0.0-0.1) 10^3/uL Absolute Nucleated RBC 0.00 x10^3/uL Nucleated RBC % 0.0 /100WBC Sodium 137 (135-145) mmol/L Potassium 3.7 (3.5-5.0) mmol/L Chloride 102 (101-111) mmol/L Carbon Dioxide 25 (21-32) mmol/L Anion Gap 10.0 (6-13) BUN 9 (6-20) mg/dL Creatinine 0.6 (0.4-1.0) mg/dL Estimated GFR (MDRD) 118 (>89) Glucose 100 (70-100) mg/dL Calcium 8.9 (8.5-10.3) mg/dL Total Bilirubin 0.5 (0.2-1.0) mg/dL AST 88 H (10-42) IU/L ALT 61 H (10-60) IU/L Alkaline Phosphatase 75 (42-121) IU/L Total Protein 7.7 (6.7-8.2) g/dL Albumin 4.1 (3.2-5.5) g/dL Globulin 3.6 (2.1-4.2) g/dL Albumin/Globulin Ratio 1.1 (1.0-2.2) Lipase 59 H (22-51) U/L HCG, Quant mIU/mL Urine Color Urine Clarity (CLEAR) Urine pH (5.0-7.5) PH Ur Specific [place] (1.002-1.030) Urine Protein (NEGATIVE) mg/dL Urine Glucose (UA) (NEGATIVE) mg/dL Urine Ketones (NEGATIVE) mg/dL Urine Occult Blood (NEGATIVE) Urine Nitrite (NEGATIVE) Urine Bilirubin (NEGATIVE) Urine Urobilinogen (NORMAL) E.U./dL Ur Leukocyte Esterase (NEGATIVE) Urine RBC (0-5) /HPF Urine WBC (0-5) /HPF Ur Squamous Epith Cells (<= Few) Urine Bacteria (None Seen) /HPF Ur Microscopic Review Urine Culture Comments Nasal Adenovirus (PCR) Nasal B. parapertussis DNA (PCR) Nasal Coronavir 229E PCR Nasal Coronavir HKU1 PCR Nasal Coronavir NL63 PCR Nasal Coronavir OC43 PCR Nasal Enterovir/Rhinovir PCR Nasal Influenza B PCR Nasal Influenza A PCR Nasal Parainfluen 1 PCR Nasal Parainfluen 2 PCR Nasal Parainfluen 3 PCR Nasal Parainfluen 4 PCR Nasal RSV (PCR) Nasal B.pertussis DNA PCR Nasal C.pneumoniae (PCR) Floyd Human Metapneumo PCR Nasal M.pneumoniae (PCR) Nasal SARS-CoV-2 (PCR) Assessment/Plan - Problem List (1) Appendicitis Impression: Recovering appropriately status post laparoscopic appendectomy Advance diet as tolerated, hep lock IV Pain control with tylenol, ibuprofen, tramadol Discharge home today Qualifiers: Appendicitis type: acute appendicitis Acute appendicitis type: with localized peritonitis Appendicitis gangrene presence: unspecified whether gangrene present Appendicitis perforation presence: without perforation Appendicitis abscess presence: without abscess Qualified Code(s): K35.30 - Acute appendicitis with localized peritonitis, without perforation or gangrene
--- NOTE | 2021-08-17 10:13 | Discharge Plan ---
Discharge Plan Condition: Stable No Smoking: If you smoke, Please STOP! Call for help.
--- NOTE | 2021-08-17 10:16 | Discharge Plan ---
Discharge Plan Problem Reviewed?: Yes Disposition: Home, Self Care Condition: Good Prescriptions: traMADol [Ultram] 50 mg PO Q4HR PRN #10 tablet PRN Reason: Pain Diet: Regular Activity Restrictions: Additional Comments (No heavy lifting >10 lbs for 6 weeks) Shower Restrictions: No Driving Restrictions: No (Can drive as long as not taking narcotics including tramadol) Additional Instructions or Follow Up instructions: Call the general surgery clinic on Thursday to set up a post-op appointment for 1- 2 weeks (with Dr. Conteh or Dr. Woo) No Smoking: If you smoke, Please STOP! Call for help. Follow-up with: Barrington Conteh MD [Provider Admit Priv/Credential] -
--- NOTE | 2021-08-17 10:20 | DISCHARGE SUMMARY ---
Discharge Summary Admit Date: 08/16/21 Discharge Date: 08/17/21 Discharging Provider: Alannah William Condition at Discharge: Good Discharge Disposition: 01 Home, Self Care - DIAGNOSES Admission Diagnoses: Acute appendicitis - HPI History of Present Illness: 31F presented with acute appendicitis. - HOSPITAL COURSE Hospital Course: Underwent laparoscopic appendectomy. Did well postop with pain controlled and tolerating advancement of diet. Discharged POD#1 with pain meds and follow up in general surgery clinic - ALLERGIES Allergies/Adverse Reactions: Allergies Allergy/AdvReac Type Severity Reaction Status Date / Time penicillin G Allergy Rash Verified 08/16/21 20:06 [From Bicillin C-R] penicillin G procaine Allergy Rash Verified 08/16/21 20:06 [From Bicillin C-R] - MEDICATIONS Home Medications: Ambulatory Orders Medication Instructions Recorded Confirmed Albuterol Sulfate [Proair Hfa 1 - 2 puffs INH Q4H PRN #1 gm 05/12/21 Inhaler] Acetaminophen [Tylenol] 1,000 mg PO Q8H tablet 08/17/21 Ibuprofen [Motrin] 600 mg PO Q6HR PRN tablet 08/17/21 traMADol [Ultram] 50 mg PO Q4HR PRN #10 tablet 08/17/21 - PHYSICAL EXAM AT DISCHARGE General Appearance: positive: No acute distress Abdomen: positive: Other (Soft, non distended, appropriately tender at incisions, incisions c/d/i) - LABS Result Diagrams: 08/16/21 17:25 08/16/21 17:25 - FOLLOW UP Follow Up: Follow up in general surgery clinic - TIME SPENT Time Spent in Discharge (Minutes): 30
== END 2021-08-17 13:13 | disposition home or self-care (01) ==
LOC: ED 16:49 → SDS 20:00 → MS2 08-17 00:13 → SDS 08-17 01:07 → MS2 08-17 01:08
PROVIDERS: ADMIT Surgery; ATTEND Surgery
PROC: 0DTJ4ZZ Resection of Appendix, Percutaneous Endoscopic Approach (ICD-10-PCS; principal; 2021-08-16 20:30)
DX: K35.80 Unspecified acute appendicitis (principal); H53.9 Unspecified visual disturbance; E66.9 Obesity, unspecified; Z68.32 Body mass index [BMI] 32.0-32.9, adult; Z20.822 Contact with and (suspected) exposure to COVID-19
CPT/HCPCS: 0202U; 36415; 44970; 74177; 80053; 81001; 83690; 84702; 85025; 96365; 99204; 99284; 99285; A9270; G0378; J0131; J1170; J3490; J7120; Q9967; 81003; 87086

== ENCOUNTER 2021-08-26 13:55 | Emergency (ER) | payer OTHER ==
--- NOTE | 2021-08-26 15:30 | ED Physician Documentation ---
PD HPI WOUND RECHECK - Stated complaint Stated Complaint: POST SURGERY COMPLICATION - Chief complaint Chief Complaint: Wound - Histroy obtained from History obtained from: Patient - History of Present Illness Location: Abdomen Timing - onset: How many days ago (3) Associated symptoms: Redness, Swelling, Drainage, Pain Similar symptoms before: Has not had sx before Recently seen: Clinic, Surgery - Additional information Additional information: Previously well 31-year-old female has had her appendix taken out here at the hospital 10 days ago and she did not have any issues went to her 1 week follow- up doing well and the day following began develop some redness swelling tenderness and drainage from the periumbilical incision site. She feels that the site was more red and swollen before it began to drain and now seems that it is deflated somewhat. It continues to have some drainage. Review of Systems Constitutional: denies: Fever Eyes: denies: Decreased vision Ears: denies: Ear pain Nose: denies: Congestion Throat: denies: Sore throat Cardiac: denies: Chest pain / pressure Respiratory: denies: Cough GI: denies: Abdominal Pain, Nausea, Vomiting, Constipation, Diarrhea : denies: Dysuria PD PAST MEDICAL HISTORY - Past Medical History Cardiovascular: None Respiratory: None Neuro: None Endocrine/Autoimmune: None GI: None [employer] ENG[employer]ER: None : None HEENT: Other Psych: Post traumatic stress disorder Musculoskeletal: None Derm: None - Past Surgical History Past Surgical History: No HEENT: Other - Present Medications Home Medications: Ambulatory Orders Medication Instructions Recorded Confirmed Albuterol Sulfate [Proair Hfa 1 - 2 puffs INH Q4H PRN #1 gm 05/12/21 Inhaler] Acetaminophen [Tylenol] 1,000 mg PO Q8H tablet 08/17/21 Ibuprofen [Motrin] 600 mg PO Q6HR PRN tablet 08/17/21 traMADol [Ultram] 50 mg PO Q4HR PRN #10 tablet 08/17/21 cephALEXin [Keflex] 500 mg PO Q6H #28 cap 08/26/21 - Allergies Allergies/Adverse Reactions: Allergies Allergy/AdvReac Type Severity Reaction Status Date / Time penicillin G Allergy Rash Verified 08/26/21 14:14 [From Bicillin C-R] penicillin G procaine Allergy Rash Verified 08/26/21 14:14 [From Bicillin C-R] - Social History Does the pt smoke?: No Smoking Status: Never smoker Does the pt drink ETOH?: Yes Does the pt have substance abuse?: No - Immunizations Immunizations are current?: Yes PD ED PE NORMAL - Vitals Vital signs reviewed: Yes (hypertensive ) - General General: Alert and oriented X 3, No acute distress, Well developed/nourished - HEENT HEENT: Atraumatic, PERRL, EOMI - Respiratory Respiratory: No respiratory distress - Abdomen Abdomen: Normal bowel sounds, Soft, Non distended, No organomegaly, Other (There is surrounding erythema to the infraumbilical incision with a drop of drainage. The area is firm without fluctuance but with tenderness. The wound is covered with surgical glue. 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 PD MEDICAL DECISION MAKING - ED course Complexity details: reviewed results, re-evaluated patient, considered differential, d/w patient ED course: 31 y/o female with a wound infection that has drained 10 days after surgery. There is no evidence of further fluid under the wound with bedside ultrasound. Ruptured abscess draining. No systemic symptoms. We will place her on a course of keflex and expect improvement and have her follow up with surgery this week. Departure - Departure Disposition: 01 Home, Self Care Clinical Impression: Wound infection after surgery Condition: Stable Instructions: ED Staph Infec Abx Tx Only, ED Wound Infec After Surgery Follow-Up: CHEL MUELLER DO [Primary Care Provider] [facility]] Prescriptions: cephALEXin [Keflex] 500 mg PO Q6H #28 cap Comments: Shell today it looks like an abscess has ruptured and drained and antibiotic therapy is indicated. I have e-scribed keflex to [facility] in [place]. The expectation is that the swelling, redness and pain all improve day by day. Follow up with the surgical center for exam this week. If you worsen instead of improving return to the ED.
[2021-08-26 15:52] VITALS: BP 119/70
== END 2021-08-26 16:00 | disposition home or self-care (01) ==
LOC: ED 13:55
DX: T81.41XA Infection following a procedure, superficial incisional surgical site, initial encounter (principal); Y83.8 Other surgical procedures as the cause of abnormal reaction of the patient, or of later complication, without mention of misadventure at the time of the procedure; Z90.49 Acquired absence of other specified parts of digestive tract
CPT/HCPCS: 99282; 99283